=== PATIENT | male | born 1995 | race Caucasian/White ===

== ENCOUNTER 2020-05-11 21:00 | Emergency (ER) | payer BC, SELFPAY ==
[2020-05-11] VITALS (12 sets, daily range): BP systolic 147–165; BP diastolic 62–88; PULSE 52–70; RESP 12–22; TEMP 36.6; O2SAT 96–98
--- NOTE | 2020-05-11 21:40 | ED.ALLEREA ---
HPI - Allergic Reaction General Chief complaint: Allergic Reaction Stated complaint: Lip swelling Time Seen by Provider: 05/11/20 21:26 Source: patient Mode of arrival: ambulatory Limitations: no limitations History of Present Illness HPI narrative: This patient is a 24 year old male who presents for evaluation of lower lip swelling. He states he woke up at 530 pm this evening feeling like he bit his right lower lip. He noticed that his lip was swollen. He reports his lip has gradually continued to get more swollen. He denies eat or drinking anything new. He denies history of allergies or similar symptoms in the past. He denies throat swelling, itching or tongue swelling. He denies chest pain ,rash or shortness of breath. He denies taking any medications. He reports taking ibuprofen this morning but he denies history allergies. Related Data Home Medications Medication Instructions Recorded Confirmed ibuprofen [Motrin] PRN 05/11/20 Allergies Allergy/AdvReac Type Severity Reaction Status Date / Time No Known Allergies Allergy Unverified 05/11/20 21:26 Review of Systems Review of Systems: All systems reviewed & are unremarkable except as noted in HPI and below Constitutional: Constitutional: Denies chills and Denies fever(s) ENT: Denies dysphagia, Denies dizziness, Denies nasal congestion and Denies sore throat Cardiovascular: Cardiovascular: Denies chest pain Respiratory: Respiratory: Denies cough and Denies dyspnea Gastrointestinal: Gastrointestinal: Denies abdominal pain and Denies nausea Integumentary/Breasts: Skin/Breast: Denies pruritus, Denies erythema, Denies rash and Denies skin ulcer PMFSH Past Medical History Medical History (Updated 05/12/20 @ 00:48 by Mary Sherwood MD) Warts Family History Family History Father Diabetes mellitus, Onset Age: 42 Family history of hypercholesterolemia, Onset Age: 42 Hypertension, Onset Age: 42 Family history of cardiovascular disease, Onset Age: 42 Family history of kidney disease, Onset Age: 42 Family history of renal failure, Onset Age: 42 Grandparent Diabetes mellitus, Onset Age: 64 Family history of hypercholesterolemia, Onset Age: 64 Hypertension, Onset Age: 64 Family history of cardiovascular disease, Onset Age: 57 Cerebrovascular accident, Onset Age: 57 Family history of coronary artery disease, Onset Age: 64 Mother Patient's mother is in good health Sibling Patient's brother is in good health Other Family history of malignant neoplasm Social History Social History Smoking status: Never smoker Second hand tobacco smoke exposure: No Alcohol intake: current Gender identity (if verbalized by the patient): Male Exam Const: General: no acute distress and alert Orientation/consciousness: patient oriented x3 HENMT: Head: normocephalic and atraumatic Ears: TM's normal bilaterally General nose exam: Normal external nose present Face and sinus: face symmetric Mouth: Yes tongue normal, Yes oropharynx normal, Yes moist mucous membranes, No drooling, Yes lip abnormal (right lower lip edematous) and No muffled voice Teeth and gingiva: gingiva normal Throat: posterior oropharynx normal, tonsils normal and uvula midline Eyes: EOM: EOMs intact bilaterally Resp: Effort & Inspection: normal respiratory effort and no retractions Auscultation: clear to auscultation bilaterally Cardio: Rate: regular rate Rhythm: regular rhythm Heart sounds: no murmurs GI: GI Palp: Yes Soft to palpation, No Tenderness to palpation present (GI) and No Guarding due to palpation present (GI) Auscultation: normal bowel sounds Skin: General skin exam: normal color Other: scattered warts on hand Neuro: General: patient oriented x3 and moves all extremities Extrem: General: normal to in
[2020-05-11] MEDS: FAMOTIDINE 20 MG/2 ML VIAL IV PUSH (21:44)
[2020-05-11] MEDS: methylPREDNISolone SOD SUCC 125 MG VIAL IV PUSH (21:44)
[2020-05-11] MEDS: diphenhydrAMINE HCl INJ 50 MG/ML VIAL IV PUSH (21:44)
[2020-05-11] MEDS: EPINEPHrine HCL INJ 1 MG/ML AMPUL 0.3 MG IM (21:45)
[2020-05-12] VITALS: PULSE 52; RESP 18; O2SAT 97
[2020-05-12 00:17] VITALS: BP 130/44; PULSE 55; RESP 15; O2SAT 97
[2020-05-12 01:01] VITALS: BP 150/93; PULSE 53; RESP 19; TEMP 36.3; O2SAT 97
== END 2020-05-12 01:02 | disposition home or self-care (01) ==
PROVIDERS: Emergency Provider General Practice; PCP Internal Medicine
DX: T78.3XXA Angioneurotic edema, initial encounter (principal); R22.0 Localized swelling, mass and lump, head
CPT/HCPCS: 96372; 96374; 96375; 99284; J0171; J1200; J2930

== ENCOUNTER 2020-08-18 14:19 | Outpatient (CLI) | payer BC, SELFPAY | END 2020-08-18 14:20 | disposition home or self-care (01) | LOC: ANHCOVIDVC 14:19 | PROVIDERS: PCP Internal Medicine | DX: Z23 Encounter for immunization (principal) | CPT/HCPCS: 0001A; 91300 ==

== ENCOUNTER 2020-09-08 13:32 | Outpatient (CLI) | payer BC, SELFPAY | END 2020-09-08 13:33 | disposition home or self-care (01) | LOC: ANHCOVIDVC 13:32 | PROVIDERS: PCP Internal Medicine | DX: Z23 Encounter for immunization (principal) | CPT/HCPCS: 0002A; 91300 ==

== ENCOUNTER 2022-04-28 21:24 | Emergency (ER) | payer BC, SELFPAY ==
--- NOTE | ~2022-04-28 | CT_ITS ---
EXAMINATION: CT brain wo con DATE: 04/28/2022 22:08 INDICATION: Dizziness. TECHNIQUE: Computed tomography (CT) of the head was performed without intravenous contrast. The mA wa s adjusted according to patient size. Iterative reconstruction technique was employed. The dose-lengt h product was 605.33 mGy-cm. COMPARISON: None FINDINGS: There is no intracranial hemorrhage, acute infarction, or abnormal intracranial mass lesion . The ventricles are normal in size. There is mild mucosal thickening in the paranasal sinuses. The o rbits are normal. The mastoid air cells are normal. IMPRESSION: 1. Normal brain. Reviewed, dictated and finalized at location A. [employer] IMPRESSION: 1. Normal brain.
[2022-04-28 21:35] VITALS: BP 177/106; PULSE 74; RESP 16; TEMP 36.6; O2SAT 99
[2022-04-28] MEDS: SODIUM CHLORIDE 0.9% IV 1,000 ML 999 ML IV CONT (22:35)
[2022-04-28] MEDS: ONDANSETRON INJ 4 MG/2 ML VIAL IV PUSH (22:36)
[2022-04-28] MEDS: MECLIZINE HCL 25 MG TABLET PO (22:36)
[2022-04-28 22:40] LABS: Basophils Absolute Auto 0.1 K/mm3 (0.0-0.1); Basophils Percent Auto 0.5 % (0.2-1.2); Eosinophils Absolute Auto 0.2 K/mm3 (0-0.3); Eosinophils Percent Auto 1.7 % (0-4.4); Hematocrit 40.7 % (42.0-52.0); Hemoglobin 13.7 g/dL (14.0-18.0); Immature Granulocyte Absolute 0.03 K/mm3 (0.00-0.031); Immature Granulocyte Percent A 0.3 % (0-0.5); Lymphocytes Absolute Auto 3.23 K/mm3 (0.9-3.2); Lymphocytes Percent Auto 30.3 % (18.3-44.2); Mean Corpuscular HGB Conc 33.7 g/dl (32-36); Mean Corpuscular Hemoglobin 29.3 pg (26-34); Mean Corpuscular Volume 87.2 fl (80-100); Mean Platelet Volume 9.4 fl (7.4-10.4); Monocytes Absolute Auto 0.7 K/mm3 (0.1-0.6); Monocytes Percent Auto 6.7 % (2.6-8.5); Neutrophils Absolute Auto 6.5 K/mm3 (1.3-6.7); Neutrophils Percent Auto 60.5 % (45.5-73.1); Platelet Count Result 268 k/mm3 (150-375); Red Blood Count 4.67 M/mm3 (4.6-6.20); Red Cell Distribution Width 13.1 % (11.5-14.5); White Blood Count 10.7 K/mm3 (4.5-10.0)
[2022-04-28 22:50] LABS: Alanine Aminotransferase 45 U/L (6-50); Albumin Level 4.4 g/dL (3.5-5.1); Alkaline Phosphatase 74 U/L (38-126); Anion Gap 8 mmol/L (8-16); Aspartate Amino Transferase 33 U/L (17-59); Bilirubin,Total 0.4 mg/dL (0.2-1.3); Blood Urea Nitrogen 18 mg/dL (9-20); Calcium 8.7 mg/dL (8.4-10.2); Carbon Dioxide 27 mmol/L (22-30); Chloride 103 mmol/L (98-107); Estimated CRCL calculation 157 ml/min; Estimated Glomerular Filt Rate > 60; Glucose 137 mg/dL (65-110); Potassium 3.9 mmol/L (3.4-5.0); Sodium 138 mmol/L (137-145)
[2022-04-28 23:05] VITALS: BP 158/89; PULSE 62; RESP 18; O2SAT 99
--- NOTE | 2022-04-28 23:21 | ED.DIZZY ---
HPI - Dizziness General Chief Complaint: Dizziness Stated Complaint: DIZZINESS Time Seen by Provider: 04/28/22 21:47 History of Present Illness HPI Narrative: 26-year-old male presented the emergency room for evaluation of unprovoked dizziness that he is been experiencing since 11:00 this morning. Patient denies any injury or trauma. States the dizziness is worse with movement and ambulation. Also endorses room spinning on occasion. Is associated with nausea no vomiting. Denies any chest pain, shortness of breath or palpitations. Denies recent URI symptoms. Denies light or sound sensitivity. Denies visual changes, however states that he has had problems focusing when he is dizzy Related Data Allergies Allergy/AdvReac Type Severity Reaction Status Date / Time No Known Allergies Allergy Verified 04/11/22 11:24 Review of Systems Review of Systems: CONSTITUTIONAL: Denies fever, chills, or sweats. EYES: Denies visual changes, redness, or discharge. ENT: Denies rhinorrhea, congestion, sore throat, or otalgia. CARDIOVASCULAR: Denies chest pain, palpitations, or edema. RESPIRATORY: Denies cough or dyspnea. GASTROINTESTINAL: Denies abdominal pain, nausea, vomiting, or diarrhea. GENITOURINARY: Denies dysuria or hematuria. SKIN: Denies rash or itching. MUSCULOSKELETAL: Denies back pain, joint pain, or myalgia. NEUROLOGIC: Reports dizziness PSYCHIATRIC: Denies anxiety or depression. [facility] Past Medical History Medical History Warts Family History Family History Father Diabetes mellitus, Onset Age: 42 Family history of hypercholesterolemia, Onset Age: 42 Hypertension, Onset Age: 42 Family history of cardiovascular disease, Onset Age: 42 Family history of kidney disease, Onset Age: 42 Family history of renal failure, Onset Age: 42 Grandparent Diabetes mellitus, Onset Age: 64 Family history of hypercholesterolemia, Onset Age: 64 Hypertension, Onset Age: 64 Family history of cardiovascular disease, Onset Age: 57 Cerebrovascular accident, Onset Age: 57 Family history of coronary artery disease, Onset Age: 64 Mother Patient's mother is in good health Sibling Patient's brother is in good health Other Family history of malignant neoplasm Social History Social History Smoking status: Never smoker Second hand tobacco smoke exposure: No Alcohol intake: current Substance use: never Substance use type: does not use Lack of Transportation: No Lack of Food: Never True Current Housing: I Have Housing Concerned About Future Housing: No Difficulty Paying Gas/Electric Bills: No Difficulty Paying for Meds: No Currently Unemployed: No Education: High School Diploma/GED Difficulty w/ Childcare or Family Care: No Gender identity (if verbalized by the patient): Male Exam Narrative: GENERAL: Well-appearing, well-nourished, no physical limitations, and in no acute distress. HEAD: Normocephalic, atraumatic. EYES: Conjunctivae normal, PERRLA and EOMI. ENT: External nose normal, Nares clear, no rhinorrhea or epistaxis. Mucous membranes moist. Oropharynx without tonsillar hypertrophy exudate or other lesions. External ears normal, bilateral TMs normal bilaterally CHEST: Clear to auscultation. No respiratory distress. No wheezes rales or rhonchi. HEART: Regular rate and rhythm. No murmur heard. Normal peripheral pulses. ABDOMEN: Soft, nontender, nondistended, normal active bowel sounds. EXTREMITIES: Normal range of motion. No edema. No clubbing or cyanosis SKIN: Warm, dry, no rash. No noted wounds NEURO: No focal deficits. Alert and oriented x3. MAEW. CN's II-XI intact bilaterally, normal gait PSYCH: Cooperative. Normal mood and affect. Course Vital Signs Vital signs: Vital Signs Temperature
== END 2022-04-29 00:29 | disposition home or self-care (01) ==
PROVIDERS: Emergency Provider Nurse Practitioner Family; PCP Family Medicine
DX: R42 Dizziness and giddiness (principal)
CPT/HCPCS: 36415; 70450; 80053; 85025; 96361; 96374; 99284; A9270; J2405; J7030

== ENCOUNTER 2023-08-24 10:01 | Outpatient (CLI) | payer BC, SELFPAY ==
[2023-08-24 12:46] LABS: Basophils Percent Auto 0.5 % (0.2-1.2); Eosinophils Absolute Auto 0.2 K/mm3 (0-0.3); Eosinophils Percent Auto 2.1 % (0-4.4); Hematocrit 42.4 % (42.0-52.0); Hemoglobin 13.6 g/dL (14.0-18.0); Immature Granulocyte Absolute 0.02 K/mm3 (0.00-0.031); Immature Granulocyte Percent A 0.2 % (0-0.5); Lymphocytes Absolute Auto 2.69 K/mm3 (0.9-3.2); Lymphocytes Percent Auto 32.6 % (18.3-44.2); Mean Corpuscular HGB Conc 32.1 g/dl (32-36); Mean Corpuscular Hemoglobin 29.2 pg (26-34); Mean Platelet Volume 10.5 fl (7.4-10.4); Monocytes Absolute Auto 0.8 K/mm3 (0.1-0.6); Monocytes Percent Auto 9.1 % (2.6-8.5); Neutrophils Absolute Auto 4.6 K/mm3 (1.3-6.7); Neutrophils Percent Auto 55.5 % (45.5-73.1); Platelet Count Result 260 k/mm3 (150-375); Red Blood Count 4.66 M/mm3 (4.6-6.20); Red Cell Distribution Width 13.5 % (11.5-14.5); White Blood Count 8.2 K/mm3 (4.5-10.0)
[2023-08-24 14:12] LABS: Alanine Aminotransferase 29 U/L (6-50); Albumin Level 4.4 g/dL (3.5-5.1); Alkaline Phosphatase 73 U/L (38-126); Anion Gap 7 mmol/L (4-12); Aspartate Amino Transferase 49 U/L (17-59); Bilirubin,Total 0.6 mg/dL (0.2-1.3); Blood Urea Nitrogen 17 mg/dL (9-20); Calcium 9.5 mg/dL (8.4-10.2); Carbon Dioxide 28 mmol/L (22-30); Chloride 104 mmol/L (98-107); Cholesterol 145 mg/dL (0-200); Estimated Glomerular Filt Rate > 60; Glucose 102 mg/dL (65-110); HDL Direct 31 mg/dL; Potassium 4.5 mmol/L (3.4-5.0); Sodium 139 mmol/L (137-145); Triglycerides 117 mg/dL (<150)
[2023-08-24 14:23] LABS: LDL Cholesterol Direct 92 mg/dL
[2023-08-24 14:51] LABS: Hemoglobin A1C 5.8 % (<5.7)
== END 2023-08-24 10:02 | disposition home or self-care (01) ==
LOC: ANHGOSHLAB 10:02
PROVIDERS: PCP Family Medicine; Visit Provider Family Medicine
DX: R73.9 Hyperglycemia, unspecified (principal); Z13.220 Encounter for screening for lipoid disorders; Z13.228 Encounter for screening for other metabolic disorders; R53.83 Other fatigue
CPT/HCPCS: 36415; 80053; 80061; 83036; 85025